=== PATIENT | female | born 1995 | race African-American/Black ===

== ENCOUNTER 2019-09-26 22:36 | Emergency (ER) | payer OTHER ==
[~2019-09-26] VITALS: Ht 154.9 cm; Wt 47.6 kg
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
[2019-09-26 23:10] VITALS: BP 107/73
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
[2019-09-27] MEDS ORDERED: IBUPROFEN600 MG ORAL (00:24)
[2019-09-27 00:31] VITALS: BP 107/73
--- NOTE | 2019-09-27 00:32 | NUR ---
ED Nurse Note: Pt cleared by health care Provider for discharge. DC instructions/prescription was given and explained to pt and verbalized understanding of teachings. All medical deviecs such as ID band removed. Pt is AAO x4, ambulatory and left with all personal belongings.
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
== END 2019-09-27 00:34 | disposition home or self-care (01) ==
LOC: EMR 23:30
DX: S00.81XA Abrasion of other part of head, initial encounter (principal); S63.641A Sprain of metacarpophalangeal joint of right thumb, initial encounter; S90.512A Abrasion, left ankle, initial encounter; V43.52XA Car driver injured in collision with other type car in traffic accident, initial encounter; Y92.9 Unspecified place or not applicable
CPT/HCPCS: 73130; 73610; Z7502; 99284